=== PATIENT | female | born 1965 | race Caucasian/White ===

== ENCOUNTER 2019-06-24 06:45 | Day surgery (SDC) | payer OTHER, SELFPAY ==
[2019-06-22 15:29] VITALS: BMI 33.3
[2019-06-24] VITALS (7 sets, daily range): BP systolic 120–161; BP diastolic 84–113; PULSE 83–123; RESP 7–24; TEMP 36.1–36.6; O2SAT 94–100
--- NOTE | 2019-06-24 07:22 | ANES.PREANE2 ---
Pre-Anesthetic Assessment Pre-Anesthetic Assessment: Height/Weight: Height 1.63 m Weight 87.997 kg Temp Pulse Resp BP Pulse Ox 97.3 F L 83 18 139/97 95 06/24/19 07:05 06/24/19 07:05 06/24/19 07:05 06/24/19 07:05 06/24/19 07:05 Preop Diagnosis: Left rotator cuff tear Proposed Procedure: Operation Date: 06/24/19 08:45 Proposed Procedures p Left shoulder rotator cuff repair (33458) and possible biceps tenodesis (73763)S46.12A/S46.219A(Left) - Edgard Castellon MD s Possible Bicep Tenodesis(Left) - Edgard Castellon MD s Shoulder Arthroscopy(Left) - Edgard Castellon MD Familial anesthetic complications: None Was Beta Cindy taken within 24 hours: N/A Last intake: NPO > 8 hrs Social: Social History: No alcohol and No tobacco Exam: Pre-Anes Outpt Exam: alert, oriented x 3, clear to auscultation bilaterally and regular rate & rhythm Airway: Cervical ROM: WNL MP: 2 Dentition: Full Pulmonary: Pulmonary: Asthma Comments: aspirin induced asthma CV/HEM: CV/HEM: None reported : : None reported Hepatic: Hepatic: None reported GI: GI: None reported Metabolic: Metabolic: None reported Musc/skel: Musc/skel: OA/DJD Neuropsych: Neuropsych: Neuropathy (L ulnar nerve neuropathy) Comments: ? preeclampsia - stroke--like symptoms with child 1987 - no furher issues Anesthetic Plan: ASA status: 2 Anesthesia: General and Regional (specify below) Other: interscalene Risk of > 500 ml blood loss (7ml/kg in children): No Data Anesthesia Cardiac Studies: No Data to Display
[2019-06-24] MEDS: sodium chloride 0.9% 1,000 ML 30 ML IV (07:23)
--- NOTE | 2019-06-24 07:39 | ANES.PROC ---
Anesthesia Procedures Procedure/Date: 06/24/19 Nerve Block ^: Nerve Block 1: Main Anesthesia: general anesthesia Consent: requested by attending/covering physician, from patient, risks and benefits reviewed and patient agrees to proceed Nerve block location: interscalene (L) Anesthesia monitors applied: pulse oximetry, EKG, BP cuff and oxygen Nerve block position: semi sitting Anesthetic Used: ropivicaine 0.5% and with decadron (4) Amount of anesthesia used (mL): 30 Ultrasound used to: visualize and ID brachial plexus and visualize and ID interscalene groove Nerve Stimulator Used?: No Interscalene/Femoral BLK: 2 stimuplex 22 g needle used for position and inplane approach and visualize local anesthetic spread Patient Tolerated Procedure: well and no complications Complications: none
[2019-06-24] MEDS: midazolam 1 mg/mL INJ 2 mL 2 MG IVP (08:12)
--- NOTE | 2019-06-24 09:32 | P.HP_ITS ---
Same Day Surgery H&P Indication for Procedure/HPI DATE OF PROCEDURE: June 24, 2019 CHIEF COMPLAINT/INDICATIONFOR SURGICAL PROCEDURE: Left rotator cuff and possible biceps tendon tear secondary to trauma PREOP DIAGNOSIS: Left rotator cuff tear PLANNED PROCEDRUE: Operation Date: 06/24/19 08:45 Proposed Procedures p Left shoulder rotator cuff repair (14730) and possible biceps tenodesis (10201)S46.12A/S46.219A(Left) - Edgard Castellon MD s Possible Bicep Tenodesis(Left) - Edgard Castellon MD s Shoulder Arthroscopy(Left) - Edgard Castellon MD The patient is a 54-year-old female who fell at work on 01/15/2019 with resulting pain in her left shoulder. An MRI has shown high-grade tears of her rotator cuff and abnormalities in her biceps. She is scheduled for elective left rotator cuff repair and possible biceps tenodesis Medications/Allergies* Home Medications Medication Instructions Recorded Confirmed Type calcium carbonate [Calcium 600] 600 mg PO DAILY 06/22/19 06/24/19 History cholecalciferol (vitamin D3) 4,000 unit PO DAILY 06/22/19 06/24/19 History [Vitamin D3] duloxetine 60 mg PO DAILY 06/22/19 06/24/19 History fluticasone propionate [Flonase 2 spray INTRANASAL DAILY 06/22/19 06/24/19 History Allergy Relief] loratadine [Claritin] 10 mg PO DAILY 06/22/19 06/24/19 History ibuprofen 800 mg PO Q6H PRN 06/24/19 06/24/19 History multivitamin 1 tab PO DAILY 06/24/19 06/24/19 History Allergies/Adverse Reactions Allergy/AdvReac Type Severity Reaction Status Date / Time aspirin Allergy Severe Unknown Verified 06/24/19 07:10 Penicillins Allergy Severe ALGY-Rash Verified 06/24/19 07:10 [employer] Allergy Severe ALGY-Bliste Uncoded 06/22/19 15:27 r Current Medications: Generic Name Dose Route Start Last Admin Trade Name Freq PRN Reason Stop Dose Admin Sodium Chloride 1,000 mls @ 30 mls/hr 06/24/19 07:00 06/24/19 07:23 Sodium Chloride 0.9% IV 06/25/19 06:59 30 mls/hr .Q24H RADHA Administration Pertinent Exam Findings alert, oriented x 3, clear to auscultation bilaterally and regular rate & rhythm Patient's left shoulder can be flexed to 150 degrees and externally rotated 60 degrees. In 90 degrees of abduction the convexity to 90 degrees and internal rotate 70 degrees. She has pain abducting her arm away from her body and with external rotator strength testing. Pertinent Data PERTINENT DATA: An MRI report was made available dated 02/06/2019. The patient had near full-thickness tearing of the supraspinatus tendon with intrasubstance degeneration in the subscap and infraspinatus. There was felt to be a partial tear of the left biceps Recommendations Surgery/Procedure today Other Plans: We will proceed to the operating room for diagnostic arthroscopy, possible rotator cuff repair, possible biceps tenodesis. Coding Level of Care Code Acute Stream Control Officer for Jesus Clarke
[2019-06-24] MEDS: clindamycin 600 MG/50 ML PREMIX 100 MG IV (09:41)
--- NOTE | 2019-06-24 10:22 | SUR.OPER ---
1018 - Pt's , Juan Ramon, notified of surgery start via his cell phone.
--- NOTE | 2019-06-24 11:36 | PM.OP ---
Operative Report Date of procedure: June 24, 2019 Pre-op Diagnosis: Left rotator cuff tear Post-op diagnosis: other Post-op Diagnosis: High-grade partial-thickness tear left rotator cuff Impingement left shoulder Partial tear left biceps tendon Tear left superior anterior and posterior labrum Procedure Done: Arthroscopic left rotator cuff repair; arthroscopic left subacromial decompression; arthroscopic right biceps tenotomy; arthroscopic debridement superior, anterior, and posterior labrum Implants: 4.5 mm [employer] Helicoil anchors x2 5.5 mm [employer] Multifix anchor x1 Pathology: none sent Anesthesia: General Estimated blood loss (mL): 25 Complications: None Findings: The patient had high-grade partial-thickness tear of the left anterior supraspinatus tendon involving approximately 90% of the thickness of the tendon with only thin fibers remaining on the bursal aspect. The area of tendon tearing measured approximately a centimeter from anterior to posterior with approximately a centimeter of undersurface retraction. There was partial tearing involving approximately 50% of the biceps at its insertion and complex tearing of the anterior and superior glenoid labrum. The humeral head and glenoid were free of chondromalacia. There was spurring of the leading edge of the acromion. Condition: stable Disposition: PACU Procedure: The patient was given an interscalene block in holding and taken to the operating room. She was given clindamycin IV. She was positioned in the lateral position with her left arm in 15 pounds of traction due to its size. She is prepped and draped in the usual fashion. A timeout was performed. A posterior portal was made 2 cm inferior medial to the posterior corner of the acromion. A scope cannula and trocar were driven into the glenohumeral joint and 8 mm inflow cannula placed anteriorly the diagnostic portion arthroscopy was performed. Initial attention was paid to the biceps. It was probed and found to be partially torn. Utilizing the [employer] Werewolf probe the biceps was released from its attachment on the superior labrum. Additional debridement of tearing of the labrum was accomplished with the labrum beginning at the biceps anchor and extending anteriorly and partially posterior to bring the labrum back to a stable base. There is no significant instability of the labrum that was thought to demand formal repair. The scope was then moved to the subacromial space. An anterior and lateral working portal were placed. The bursal tissue was removed. The leading edge of the acromion was outlined with the [employer] Werewolf probe. A 5.5 mm acromionizer was introduced and approximately 4 mm of anterior and inferior acromion removed. Attention was then focused on the anterior rotator cuff. The very thin area of remaining bursal fibers was identified and utilizing an incisor shaver that area easily perforated. The rotator cuff was debrided back to stable edges revealing a tear approximately a centimeter from anterior to posterior with a centimeter of medial retraction. The footprint of the rotator cuff was debrided back with the acromionizer to vascular bone. Through a small lateral stab wound a 4.5 mm helical anchor was placed in the posterior medial rotator cuff footprint. A [employer]hew FirstPass suture passer was used to shuttle 1 limb of Ultratape to the far posterior rotator cuff and a second limb approximately a centimeter anterior to that. A second [employer] Helicoil anchor was placed and the 2 ultra tape sutures passed in identical fashion. Each suture anchor was secured bringing the medial cuff to the medial footprint. The sutures was then drawn out the lateral portal and passed through a 5.5 mm [employer] Multifix anchor which was placed laterally drawing the lateral cuff down to bone. The shoulder was irrigated with saline. Portals were closed with 3-0 Prolene. Sterile dressings were applied. The patient was extubated and taken to recovery room in stable condition.
--- NOTE | 2019-06-24 11:54 | SUR.PHASEII ---
1155 PT ON RA TRIAL PT AWAKES TO VOICE DENIES PAIN AND NAUSEA, VSS SATS 100%
== END 2019-06-24 13:00 | disposition home or self-care (01) ==
PROVIDERS: Visit Provider Orthopaedic Surgery
PROC: (CPT 29805; principal; 2019-06-24 08:45)
PROC: (CPT 29826; 2019-06-24 08:45)
DX: M75.102 Unspecified rotator cuff tear or rupture of left shoulder, not specified as traumatic (principal); M25.812 Other specified joint disorders, left shoulder; S46.112A Strain of muscle, fascia and tendon of long head of biceps, left arm, initial encounter; S43.432A Superior glenoid labrum lesion of left shoulder, initial encounter; X58.XXXA Exposure to other specified factors, initial encounter
CPT/HCPCS: 29826; 29827; 29828; 12345; 96374; C1713; J1100; J2001; J2250; J2405; J2704; J2710; J2795; J3010; J3490; J7030